=== PATIENT | male | born 1995 | race Hispanic/Latino ===

== ENCOUNTER 2021-05-26 23:14 | Emergency (ER) | payer BC, SELFPAY ==
[2021-05-26 23:16] VITALS: BP 160/81; PULSE 100; RESP 22; TEMP 36.8; O2SAT 96; BMI 49.1
[2021-05-26 23:18] VITALS: BP 160/81; PULSE 100; RESP 22; TEMP 36.8; O2SAT 96
--- NOTE | 2021-05-26 23:23 | EX.ED.GENINJ ---
HPI History of Present Illness Chief Complaint: Laceration Informant: patient Narrative Narrative: Patient accidentally cut the dorsum of his left hand about 45 min ago. He is right-hand dominant. He is not sure when his last tetanus shot was. He has no numbness tingling or loss of function. Bleeding was controlled with just light pressure. No other injury. Nothing really makes it better or worse other than applying pressure stop the bleeding. PFSH PFSH Allergy/AdvReac Type Severity Reaction Status Date / Time No Known Allergies Allergy Verified 05/26/21 23:20 Social History Smoking Status: Current every day smoker tobacco type: cigarettes ROS ROS ED Constitutional Constitutional ED: Denies fever(s) Gastrointestinal Gastrointestinal: Denies nausea or vomiting Musculoskeletal Musculoskeletal: Reports other Details: Laceration but no blunt trauma. No pain with motion. Integumentary Reports other Details: Laceration as in history of present illness. Neurologic Neurologic: Denies paresthesias or weakness EXAM Physical Exam Const Vital Signs: 05/26/21 23:16 05/26/21 23:18 Temperature 98.2 F 98.2 F Temperature Source Temporal Temporal Pulse Rate 100 100 Respiratory Rate 22 H 22 H Blood Pressure 160/81 H 160/81 H Blood Pressure Mean 107 107 Pulse Ox 96 96 Oxygen Delivery Method Room Air Room Air Positive well nourished and well developed General Appearance ED: well developed and NAD HEENT atraumatic Resp normal respiratory effort Extremity Extremity Narrative: Patient has a 2.5 cm curvilinear laceration with slight flap formation to the dorsum of his left hand overlying the distal lateral area near the end of the second metacarpal. No loss of range of motion or tendon function. Sensation is normal distally. No active bleeding. Neuro no focal motor deficits and no sensory deficits noted Sensorium / Orientation: alert Skin Skin Narrative: Laceration as above PROC Procedures Lacerations Left hand: Depth: Sub Q Shape: Flap Prep: Sterile Conditions and Shure-Clens Laceration repair: Irrigated, Lidocaine, Local and Wound explored Irrigated (ml): 200 Number of Sutures/Lauren: 5 Suture Information: Ethilon and 4-0 Discharge Plan Triage Chief Complaint: Laceration ED Provider: Shelton Damon Dx/Rx/DC Orders Clinical Impression: Laceration of hand, left Instructions: ED Laceration, Hand: All Closures Primary Care Provider: Care Physician,No Primary Referrals: Nikky Jerez, DO [NON-STAFF] - 10-14 Days suture removal Care Physician,No Primary [Primary Care Provider] - Disposition Disposition: Home, Self Care
[2021-05-26] MEDS: Diphth,Pertuss(Acell),Tet Vac 0.5 ML Vial IM (23:53)
== END 2021-05-27 | disposition home or self-care (01) ==
LOC: ED 23:38
PROVIDERS: Emergency Provider Emergency Medicine; Visit Provider Emergency Medicine
DX: S61.412A Laceration without foreign body of left hand, initial encounter (principal); W26.8XXA Contact with other sharp object(s), not elsewhere classified, initial encounter; F17.210 Nicotine dependence, cigarettes, uncomplicated
CPT/HCPCS: 12001; 90471; 90715; 99283